=== PATIENT | male | born 1975 | race Caucasian/White ===

== ENCOUNTER 2016-05-22 17:29 | Emergency (ER) | payer BC | END 2016-05-22 21:26 | disposition home or self-care (01) | LOC: ER1 17:29 | DX: S61.412A Laceration without foreign body of left hand, initial encounter (principal); V86.99XA Unspecified occupant of other special all-terrain or other off-road motor vehicle injured in nontraffic accident, initial encounter; Y92.410 Unspecified street and highway as the place of occurrence of the external cause | CPT/HCPCS: 73130; 99283; J0690 ==